=== PATIENT | male | born 1995 | race Hispanic/Latino ===

== ENCOUNTER 2018-07-26 08:48 | Emergency (ER) | payer SELFPAY ==
[~2018-07-26] VITALS: Ht 175.3 cm; Wt 90.0 kg
[~2018-07-26 08:48] MED LIST: AMOXICILLIN500 MG OR; KEFLEX500 MG PO; NAPROSYN375 MG PO; NO; NO MEDS; ZITHROMAX250 MG PO
[2018-07-26] MEDS ORDERED: AMOXICILLIN500 M2 PO (09:01)
[2018-07-26 09:21] VITALS: BP 133/75
== END 2018-07-26 09:25 | disposition home or self-care (01) | DRG 153 ==
LOC: ED 08:48
DX: J02.0 Streptococcal pharyngitis (principal); M54.5 Low back pain

== ENCOUNTER 2020-11-16 03:05 | Emergency (ER) | payer SELFPAY ==
[~2020-11-16] VITALS: Ht 177.8 cm; Wt 85.0 kg
[~2020-11-16 03:05] MED LIST changes: +AMOXICILLIN500 M2 PO
[2020-11-16 03:42] LABS: IMMATURE GRANULOCYTES 0.1 % (0.0-5.0); MEAN CORPUSCULAR HGB 29.5 pG CALC (26.0-32.0); MEAN CORPUSCULAR HGB CONC 33.5 g/dL CAL (32.0-36.0); NEUT# 4.54 thou/uL (1.82-7.42); RED BLOOD COUNT 5.25 mill/uL (4.70-6.10); RED CELL DISTRI WIDTH 12.2 % (11.5-15.5)
[2020-11-16 03:43] LABS: URINE BILIRUBIN - DIPSTICK NEGATIVE (NEGATIVE); URINE BLOOD DIPSTICK NEGATIVE (NEGATIVE); URINE COLOR YELLOW; URINE GLUCOSE - DIPSTICK NEGATIVE (NEGATIVE); URINE KETONE NEGATIVE (NEGATIVE); URINE LEUK ESTERASE NEGATIVE (NEGATIVE); URINE PH 6.5 (4.5-8.0); URINE PROTEIN - DIPSTICK NEGATIVE (NEG-TRACE); URINE SPECIFIC GRAVITY 1.015; URINE UROBILINOGEN - DIPSTICK 0.2 E.U./dL (0.2)
[2020-11-16 03:45] LABS: HEMATOCRIT 46.2 % (39.0-50.0); HEMOGLOBIN 15.5 g/dl (14.0-18.0)
[2020-11-16 03:46] LABS: URINE NITRITE - DIPSTICK NEGATIVE (Negative)
[2020-11-16 04:02] LABS: ALBUMIN 4.4 g/dL (3.2-5.0); ALKALINE PHOSPHATASE 73 u/l (38-126); ANION GAP 11 (6-22 (CALC)); BILIRUBIN, TOTAL 0.7 mg/dL (0.0-1.4); BUN 17 mg/dL (9-20); BUN/CREATININE RATIO 13 (12-20 (CALC)); CARBON DIOXIDE 32 mmol/l (22-30); CHLORIDE 97 mmol/l (95-108); CREATININE 1.3 mg/dL (0.7-1.3); ETHYL ALCOHOL 0 mg/dl (0-30); GFR > 60 ML/MIN (>=60 (CALC)); GFR FOR AFR.AMER. > 60 ML/MIN (>=60 (CALC)); LIPASE 79 u/l (23-300); POTASSIUM 3.4 mmol/l (3.5-5.1); SGOT/AST 89 u/l (17-59); SODIUM 137 mmol/l (137-146); TOTAL PROTEIN 7.6 g/dL (6.3-8.2)
[2020-11-16] MEDS ORDERED: PROTONIX40 MG PO (04:35)
[2020-11-16 04:45] VITALS: BP 118/56
== END 2020-11-16 04:48 | disposition home or self-care (01) | DRG 392 ==
LOC: ED 03:05
DX: R10.84 Generalized abdominal pain (principal); Z20.822 Contact with and (suspected) exposure to COVID-19